=== PATIENT | female | born 1945 | race Caucasian/White ===

== ENCOUNTER 2021-09-12 21:19 | Inpatient (IN) | payer MEDICARE ==
[~2021-09-12] VITALS: Ht 160 cm; Wt 81.8 kg
[~2021-09-12 21:19] MED LIST: LORTAB 5/500 501 TAB PO; NO HOME MEDICATIONS; PERCOCET 650 MG1 TAB PO
[2021-09-12 22:31] LABS: INR 1.1 (0.8-3.0); PROTHROMBIN TIME 11.8 SECONDS (9.7-12.8)
[2021-09-12 22:32] LABS: BASO % 0.5 % (0.0-2.0); EOS % 0.7 % (0-4.0); GRAN # 4.7 K/mm3 (1.4-6.5); GRAN % 77.1 % (42.2-75.2); HEMATOCRIT 37.3 % (37.0-47.0); HEMOGLOBIN 12.1 g/dl (12.5-16.0); LYMPH # 0.8 K/mm3 (1.2-3.4); LYMPH % 12.4 % (20.0-51.0); MEAN CELL VOLUME 90 fl (80.0-100.0); MEAN CORPUSCULAR HEMOGLOBIN 29 pg (27.0-31.0); MEAN CORPUSCULAR HGB CONC 32 g/dl (33.0-37.0); MEAN PLATELET VOLUME 11.8 fl (7.4-10.4); MONO # 0.5 K/mm3 (0.1-0.6); MONO % 8.6 % (1.7-9.3); PLATELET COUNT 234 K/mm3 (130-400); RED BLOOD COUNT 4.14 M/mm3 (4.10-5.30); REDCELL DISTRIBUTION WIDTH-CV 13.2 % (11.5-14.5)
[2021-09-12 22:33] LABS: PARTIAL THROMBOPLASTIN TIME 26.7 SECONDS (26.0-37.0)
[2021-09-12 22:39] LABS: ALANINE AMINOTRANSFERASE 126 U/L (0-55); ALBUMIN 2.9 gm/dL (3.4-4.8); ALKALINE PHOSPHATASE 169 U/L (40-150); ANION GAP 13 mmol/L (7-16); AST,SGOT 97 U/L (5-34); BILIRUBIN,TOTAL 0.4 mg/dL (0.2-1.2); BLOOD UREA NITROGEN 17 mg/dL (10-20); CALCIUM 9.1 mg/dL (8.4-10.2); CARBON DIOXIDE 29 mmol/L (23-31); CHLORIDE 102 mmol/L (98-107); CREATININE, serum 0.67 mg/dL (0.57-1.11); GLUCOSE 111 mg/dL (70-99); POTASSIUM 3.4 mmol/L (3.5-4.5); SODIUM 144 mmol/L (136-145); TOTAL PROTEIN 6.9 gm/dL (6.2-8.1)
[2021-09-12 22:47] LABS: TROPONIN-I < 0.010 ng/mL (0.00-0.033)
--- NOTE | 2021-09-13 03:12 | NUR ---
Arrived to unit, Awake, alert, oriented x 4, able to verbalize all needs, O2@10L per Oxymask in use, RT at bedside, assessment completed at this time, oriented to room and call varma, denies pain. Will continue to monitor.,
[2021-09-13 05:14] VITALS: BP 151/79; PULSE 94; TEMP 97.7
[2021-09-13 07:18] LABS: HEMATOCRIT 37.5 % (37.0-47.0); HEMOGLOBIN 12.2 g/dl (12.5-16.0); MEAN CELL VOLUME 89 fl (80.0-100.0); MEAN CORPUSCULAR HEMOGLOBIN 29 pg (27.0-31.0); MEAN CORPUSCULAR HGB CONC 33 g/dl (33.0-37.0); MEAN PLATELET VOLUME 10.9 fl (7.4-10.4); PLATELET COUNT 240 K/mm3 (130-400); RED BLOOD COUNT 4.22 M/mm3 (4.10-5.30); REDCELL DISTRIBUTION WIDTH-CV 13.1 % (11.5-14.5)
[2021-09-13 07:29] VITALS: BP 135/94; PULSE 96; TEMP 98
[2021-09-13 07:40] LABS: CALCIUM 9.5 mg/dL (8.4-10.2); CREATININE, serum 0.64 mg/dL (0.57-1.11); POTASSIUM 4.5 mmol/L (3.5-4.5)
[2021-09-13 08:25] LABS: BAND 10 % (0-10); LYMPHOCYTE 13 % (20.0-51.0); NEUTROPHILS 72 % (42.0-75.2); PLATELET ESTIMATE NORMAL (NORMAL)
--- NOTE | 2021-09-13 08:52 | NUR ---
Scheduled medications given. Shift assessment preformed. Patient currently requiring 10L of O2 via oxymask. Dyspnea and cough upon exertion noted. Cough during deep breathing also noted. Denies the need for cough medicine at the time. Patient has been having diarrhea this AM. Patient denies any pain, discomfort, N/V, or further needs at this time. Patient is afebrile. Call light in reach. VSS. Patient A&O.
--- NOTE | 2021-09-13 09:10 | NUR ---
The patient is COVID positive. SW attempted to contact the patient to discuss dischage plan. She did not answer. CATHERINE then contacted the patient's , Ed (ph#[phone]), to complete intake. The patient lives in[place]between [place] and [place] with Ed. Ed reports that the patient is independent with ADLs and does not have any DME. The patient's PCP is Dr. Benita Thomas and she receives her medications from [facility]. The patient does not have a DPOA-HC in EMR, but Ed states that the patient does have a DPOA-HC and that Dr. Thomas's office may have a copy of it. He states that their daughter, Pamella Cartagena (ph#[phone]), is the patient's DPOA-HC. CATHERINE left message with [employer], with Dr. Thomas requesting the patient's DPOA-HC. Ed reports that the plan is for the patient to return back home with him upon discharge. The patient is currently requiring 10 liters of oxygen. SW to continue to monitor. *Discharge plan: home with *
--- NOTE | 2021-09-13 10:31 | NUR ---
SW received the patient's DPOA-HC and Living Will, via fax. SW placed the documents in the patient's chart. The patient's DPOA-HC is her , Ed.
[2021-09-13 12:13] VITALS: BP 153/78; PULSE 100; TEMP 98
[2021-09-13 15:50] VITALS: BP 146/78; PULSE 86; TEMP 98.1
--- NOTE | 2021-09-13 17:38 | NUR ---
Patient has had an uneventfulday. Currently requiring 10L of O2 via oxymask. Still experiencing dyspnea upon exertion. Patient denies any pain, discomfort, or further needs at this time. Call light in reach. VSS. Patient A&O.
[2021-09-13 19:51] VITALS: BP 148/110; PULSE 83; TEMP 98.6
[2021-09-13 23:03] VITALS: BP 148/72; PULSE 75; TEMP 98.6
[2021-09-14] VITALS (7 sets, daily range): BP systolic 134–189; BP diastolic 53–80; PULSE 68–82; TEMP 97.7–98.2
--- NOTE | 2021-09-14 08:35 | NUR ---
Scheduled medication given. Shift assessment preformed. Patient currently requiring 10 L of O2 via oxy mask. Patient denies any N/V/D, pain or discomfort at this time. VSS. Patient A&O. Afebrile. Call light in reach.
[2021-09-14 10:51] LABS: CALCIUM 9.6 mg/dL (8.4-10.2); CREATININE, serum 0.61 mg/dL (0.57-1.11); POTASSIUM 3.9 mmol/L (3.5-4.5)
--- NOTE | 2021-09-14 18:24 | NUR ---
Patient has had an ok day. Currently requiring 10L of O2 via nasal cannula. PRN robutussin given for cough. Patient denies any pain, discomfort, or further needs at this time. Call light in reach. Patient A&O.
--- NOTE | 2021-09-14 18:40 | NUR ---
BP Noticed to be out of range for patient. Blood pressure taken manually. Returned to patient's normal range.
--- NOTE | 2021-09-14 20:00 | NUR ---
Initial shift assessment done- was resting on her stomach this evening- o2 at 10L/oxymask with sats 94-97%, denies any requests, states she had enough food for supper-denies need for snacks, afebrile-no diarrhea today,, Up to bathroom on her own- steady on feet. Will call for any questions or concerns
[2021-09-15 04:39] VITALS: BP 154/71; PULSE 68; TEMP 98.1
--- NOTE | 2021-09-15 07:25 | NUR ---
Quiet night- o2 at 10L/oxymask -sats 95-97%,, denies SOB
[2021-09-15 08:29] VITALS: BP 135/61; PULSE 74; TEMP 98.1
--- NOTE | 2021-09-15 08:30 | NUR ---
PT PLEASANT, AOX4, DENIES SOB, N/V/D, PT ASSESSED, VITALS TAKEN, MEDS CHARTED AND GIVEN, BREAKFAST BROUGHT IN TO PT, NO OTHER NEEDS
[2021-09-15 15:57] VITALS: BP 135/59; PULSE 76; TEMP 98.1
--- NOTE | 2021-09-15 17:32 | NUR ---
PT PLEASANT, AOX4, DENIES PAIN, DENIES SOB, DENIES N/V/D, REMDESIVIR DETTACHED, CALL LIGHT WITHIN REACH, PT ON 6L NC AT THIS TIME. NO OTHER NEEDS
[2021-09-15 19:57] VITALS: BP 135/60; PULSE 79; TEMP 97.9
[2021-09-16] VITALS: BP 134/60; PULSE 77; TEMP 97.6
[2021-09-16 03:31] VITALS: BP 132/59; PULSE 62; TEMP 97.9
--- NOTE | 2021-09-16 04:58 | NUR ---
VS stable, 3L per NC in use to maintain SPO2, denies c/o at this time.
[2021-09-16 07:39] LABS: BASO % 0.1 % (0.0-2.0); EOS % 0.5 % (0-4.0); GRAN # 6.3 K/mm3 (1.4-6.5); GRAN % 75.5 % (42.2-75.2); HEMATOCRIT 39.8 % (37.0-47.0); HEMOGLOBIN 13.2 g/dl (12.5-16.0); LYMPH # 1.2 K/mm3 (1.2-3.4); LYMPH % 13.8 % (20.0-51.0); MEAN CELL VOLUME 90 fl (80.0-100.0); MEAN CORPUSCULAR HEMOGLOBIN 30 pg (27.0-31.0); MEAN CORPUSCULAR HGB CONC 33 g/dl (33.0-37.0); MEAN PLATELET VOLUME 11.6 fl (7.4-10.4); MONO # 0.8 K/mm3 (0.1-0.6); MONO % 9.1 % (1.7-9.3); PLATELET COUNT 299 K/mm3 (130-400); RED BLOOD COUNT 4.44 M/mm3 (4.10-5.30); REDCELL DISTRIBUTION WIDTH-CV 12.7 % (11.5-14.5)
[2021-09-16 07:45] LABS: CALCIUM 9.7 mg/dL (8.4-10.2); CREATININE, serum 0.59 mg/dL (0.57-1.11); POTASSIUM 3.9 mmol/L (3.5-4.5)
[2021-09-16 09:02] VITALS: BP 113/49; BP 115/51; PULSE 80; TEMP 98.3
--- NOTE | 2021-09-16 09:31 | NUR ---
Patient leaving the bathroom upon entering the room. Patient stable on her feet w/ a steady gait. Patient does not have any complaints or concerns this morning.
[2021-09-16 12:29] VITALS: BP 131/60; PULSE 87; TEMP 98.1
[2021-09-16] MEDS ORDERED: MONODOX100 PO (14:04)
[2021-09-16] MEDS ORDERED: OMNICEF 300MG300 MG PO (14:05)
[2021-09-16] MEDS ORDERED: DECADRON6 MG PO (14:05)
[2021-09-16] MEDS ORDERED: PROAIR HFA0.09 MG/AC IH (14:06)
--- NOTE | 2021-09-16 14:08 | NUR ---
The patient's RN notified CATHERINE that the hospitalist is ready to discharge today and that she qualified for 5 liters of oxygen. CATHERINE contacted the patient to review the above and and informed of the different DME companies. The patient would prefer to get her oxygen from somewhere in [place] and she was agreeable with getting it from [facility]. CATHERINE read the IM form outloud to the patient. The patient verbalized understanding and gave CATHERINE approval to sign the form on her behalf. CATHERINE contacted and faxed and emailed the oxygen order to Violeta at [facility]. Due to the patient being COVID positive, Dinesh at [facility] requests that family hop picker the oxygen from them. He states her order will be ready at 1600. CATHERINE updated the patient. The patient reports that she will contact her now and let him know. CATHERINE updated the patient's RN. The patient is to discharge back home with her today, 09/16. No additional needs at this time.
--- NOTE | 2021-09-16 17:15 | NUR ---
Patient discharged @ approx. 1610. IV access discontinued. No issues w/ discharge.
[2021-09-17 00:33] LABS: PROCALCITONIN 0.05 ng/mL (0.00-0.09)
== END 2021-09-16 16:10 | disposition home or self-care (01) | DRG 177 ==
LOC: COL.ER 21:19 → MEDICAL 09-13 00:55
PROVIDERS: Student in an Organized Health Care Education/Training Program; ADMIT Family Medicine
PROC: 5A0935A Assistance with Respiratory Ventilation, Less than 24 Consecutive Hours, High Flow/Velocity Cannula (ICD-10-PCS; principal; 2021-09-14)
DX: U07.1 COVID-19 (principal); J96.01 Acute respiratory failure with hypoxia; Z96.651 Presence of right artificial knee joint; Z73.0 Burn-out; E87.6 Hypokalemia
CPT/HCPCS: 99223-AI; 99232-AI; 99239; J0696; J1100; J1650; J7030; J7050; Q0244; Q9967